=== PATIENT | female | born 1975 | race Caucasian/White ===

== ENCOUNTER 2017-07-01 10:11 | Emergency (ER) | payer OTHER ==
[2017-07-01] MEDS ORDERED: NS 1,000 ML IV ONE (10:18)
[2017-07-01] MEDS ORDERED: KETOROLAC 15 MG/1 ML SDV IVP ONE (10:31)
[2017-07-01 10:53] LABS: PLATELET COUNT 251 10^3/uL (150-400)
--- NOTE | 2017-07-01 12:14 | EDPHY ---
H & P Stated Complaint: R abd pain x 3 months on and off sharp and dull Time Seen by Provider: 07/01/17 10:17 HPI/ROS: This patient describes right lower quadrant abdominal pain that was initially intermittent starting 3 months ago, gradual in onset. Over the past 2 weeks the pain has become constant. Over the past 3 days the pain has steadily increased in intensity, and is now 7/10 in intensity at baseline achy in nature worse with some movement. She reports partial improvement from ibuprofen and notes no other exacerbating factors. She has not taken any analgesics for pain today. He reports that the pain is somewhat reminiscent of an ovarian cyst she had the past. She denies any other associated symptoms. She drove herself here by private vehicle for further evaluation. ROS: Constitutional: No fevers or chills. No significant fatigue. HEENT: No URI symptoms Pulmonary: No shortness of breath or other complaints cardiovascular: No lightheadedness GI: She reports normal bowel movements 1-2 day the slightly harder than usual lately. She describes lower belly or pelvic bloating that mild. Normal appetite. No nausea vomiting. : Last menstrual period was normal timing and duration 1 week ago. No dysuria, no frequency urgency. Integumentary: No rash or pallor. No diaphoresis. Endocrine: No complaints Neuro: No numbness tingling or complaints. Complete review of symptoms otherwise negative. Source: Patient Exam Limitations: No limitations - Personal History LMP (Females 10-55): 8-14 Days Ago Current Tetanus/Diphtheria Vaccine: Yes - Medical/Surgical History PMH: Not on control. had a vasectomy Hx Asthma: No Hx Chronic Respiratory Disease: No Hx Diabetes: No Hx Cardiac Disease: No Hx Renal Disease: No Hx Cirrhosis: No Hx Alcoholism: No Hx HIV/AIDS: No Hx Splenectomy or Spleen Trauma: No Other PMH: Ovarian Cysts - Family History Significant Family History: No pertinent family hx - Social History Smoking Status: Former smoker Alcohol Use: Occasionally Drug Use: None - Physical Exam Exam: Vital signs are normal with exception of mild hypertension 146/95 General Appearance: Pleasant fit-appearing 41-year-old female Alert, no distress. Eyes: Pupils equal and round no pallor or injection. ENT, Mouth: Mucous membranes moist. Respiratory: There are no retractions, lungs are clear to auscultation. Cardiovascular: Regular rate and rhythm. Gastrointestinal: Normoactive, soft, mild right lower quadrant tenderness. Positive psoas sign. Negative obturator sign. Negative Rovsing's. No rebound tenderness. Neurological: GCS 15 Skin: Warm and dry, no rashes. Musculoskeletal: Neck is supple nontender. Extremities are symmetrical, full range of motion. Psychiatric: Mood and affect normal DIFFERENTIAL DIAGNOSIS: After history and physical exam differential diagnosis was considered for ovarian cyst, uterine fibroid or other lesions, appendicitis , this ureteral stone, ectopic Constitutional: Initial Vital Signs Temperature (C) 37.2 C 07/01/17 10:15 Heart Rate 88 07/01/17 10:15 Respiratory Rate 18 07/01/17 10:15 Blood Pressure 146/95 H 07/01/17 10:15 O2 Sat (%) 97 07/01/17 10:15 O2 Delivery Mode Room Air Allergies/Adverse Reactions: Sulfa (Sulfonamide Antibiotics) Allergy (Verified 07/01/17 10:19) Hives Home Medications: Medication Instructions Recorded traMADol [Ultram 50 mg (*)] 50 - 100 mg PO Q4 PRN #20 tab 07/01/17 Medical Decision Making - Diagnostics Imaging Results: Imaging Impressions Pelvic/Renal Ultrasound 07/01/17 10:31 Impression: 1. Subtle heterogeneous echotexture along the posterior aspect of the uterine body that could represent a fibroid. 2. Normal-appearing ovaries. Imaging: Discussed imaging studies w/ will call clerk Radiologist ED Course/Re-evaluation: Studies: CBC is normal, basic metabolic panel normal, hCG negative, urinalysis reveals leukocytes, bacteria and nitrates consistent with mild UTI Toradol IV with partial improvement of the patient's pain I spoke with Leslie Quintana, on-call ornamental metal worker physician regarding this patient's uterine fibroid. Dr. Quintana is happy to follow up with patient in her office. Discussion: Patient with a large uterine fibroid causing her pain along with mild cystitis. I counseled her regarding these findings. Will plan to control her pain with NSAIDs, Tylenol and tramadol. Macrobid for cystitis. She will follow up with Dr. Quintana within the next week. She understands need to return emergency department should she develop any significant worsening of her symptoms despite treatment plan. - Data Points Laboratory Results: Laboratory Results 07/01/17 10:45 07/01/17 10:45 07/01/17 07/01/17 07/01/17 12:15 10:45 10:45 WBC RBC Hgb Hct MCV MCH MCHC RDW Plt Count MPV Neut % (Auto) Lymph % (Auto) [place] % (Auto) Eos % (Auto) Baso % (Auto) Nucleat RBC Rel Count Absolute Neuts (auto) Absolute Lymphs (auto) Absolute Monos (auto) Absolute Eos (auto) Absolute Basos (auto) Absolute Nucleated RBC Immature Gran % Immature Gran # Sodium 140 mEq/L mEq/L (135-145) Potassium 3.8 mEq/L mEq/L (3.3-5.0) Chloride 101 mEq/L mEq/L (97-110) Carbon Dioxide 28 mEq/l mEq/l (22-31) Anion Gap 11 mEq/L mEq/L (8-16) BUN 15 mg/dL mg/dL (7-23) Creatinine 0.5 mg/dL L mg/dL (0.6-1.0) Estimated GFR > 60 Glucose 89 mg/dL mg/dL (70-100) Calcium 9.6 mg/dL mg/dL (8.5-10.4) Beta HCG, Qual NEGATIVE Urine Color YELLOW Urine Appearance HAZY Urine pH 6.0 (5.0-7.5) Ur Specific [place] 1.020 (1.002-1.030) Urine Protein NEGATIVE (NEGATIVE) Urine Ketones NEGATIVE (NEGATIVE) Urine Blood 2+ H (NEGATIVE) Urine Nitrate POSITIVE H (NEGATIVE) Urine Bilirubin NEGATIVE (NEGATIVE) Urine Urobilinogen 0.2 EU EU (0.2-1.0) Ur Leukocyte Esterase NEGATIVE (NEGATIVE) Urine RBC 10-15 /hpf H /hpf (0-3) Urine WBC 5-10 /hpf H /hpf (0-3) Ur Epithelial Cells 2+ /lpf H /lpf (NONE-1+) Urine Bacteria 3+ /hpf H /hpf (NONE SEEN) Urine Glucose NEGATIVE (NEGATIVE) 07/01/17 10:45 WBC 7.34 10^3/uL 10^3/uL (3.80-9.50) RBC 3.98 10^6/uL L 10^6/uL (4.18-5.33) Hgb 13.6 g/dL g/dL (12.6-16.3) Hct 39.6 % % (38.0-47.0) MCV 99.5 fL fL (81.5-99.8) MCH 34.2 pg H pg (27.9-34.1) MCHC 34.3 g/dL g/dL (32.4-36.7) RDW 12.0 % % (11.5-15.2) Plt Count 251 10^3/uL 10^3/uL (150-400) MPV 8.4 fL L fL (8.7-11.7) Neut % (Auto) 68.6 % % (39.3-74.2) Lymph % (Auto) 22.1 % % (15.0-45.0) [place] % (Auto) 7.9 % % (4.5-13.0) Eos % (Auto) 0.7 % % (0.6-7.6) Baso % (Auto) 0.4 % % (0.3-1.7) Nucleat RBC Rel Count 0.0 % % (0.0-0.2) Absolute Neuts (auto) 5.04 10^3/uL 10^3/uL (1.70-6.50) Absolute Lymphs (auto) 1.62 10^3/uL 10^3/uL (1.00-3.00) Absolute Monos (auto) 0.58 10^3/uL 10^3/uL (0.30-0.80) Absolute Eos (auto) 0.05 10^3/uL 10^3/uL (0.03-0.40) Absolute Basos (auto) 0.03 10^3/uL 10^3/uL (0.02-0.10) Absolute Nucleated RBC 0.00 10^3/uL 10^3/uL (0-0.01) Immature Gran % 0.3 % % (0.0-1.1) Immature Gran # 0.02 10^3/uL 10^3/uL (0.00-0.10) Sodium Potassium Chloride Carbon Dioxide Anion Gap BUN Creatinine Estimated GFR Glucose Calcium Beta HCG, Qual Urine Color Urine Appearance Urine pH Ur Specific [place] Urine Protein Urine Ketones Urine Blood Urine Nitrate Urine Bilirubin Urine Urobilinogen Ur Leukocyte Esterase Urine RBC Urine WBC Ur Epithelial Cells Urine Bacteria Urine Glucose Medications Given: Discontinued Medications Sodium Chloride (Ns) 1,000 mls @ 0 mls/hr IV EDNOW ONE; Wide Open PRN Reason: Protocol Stop: 07/01/17 10:19 Last Admin: 07/01/17 10:40 Dose: 1,000 mls Ketorolac Tromethamine (Toradol) 15 mg IVP EDNOW ONE Stop: 07/01/17 10:32 Last Admin: 07/01/17 11:35 Dose: 15 mg Departure - Departure Disposition: Home, Routine, Self-Care Clinical Impression: Cystitis Uterine fibroid Qualifiers: Uterine leiomyoma location: unspecified location Qualified Code(s): D25.9 - Leiomyoma of uterus, unspecified Condition: Good Instructions: Tramadol (By mouth), Pelvic Pain in Women (ED) Additional Instructions: Diagnosis: Uterine fibroid 2. cystitis Plan: Continue [id number] mg per 6 hr as needed for pain control. Tylenol in addition 650-1000 mg per 4 hr as needed. Do not exceed 3000 mg in 24 hr Tramadol in addition if needed for pain. No driving, alcohol or come tramadol. Macrobid antibiotic for bladder infection Call Dr. Ortiz to arrange for follow-up appointment for sometime within the next week. Return emergency department for any significant worsening despite the treatment plan. Referrals: NONE *PRIMARY CARE P,. [Primary Care Provider] - As per Instructions Leslie Quintana MD [Medical Doctor] - As per Instructions Prescriptions: traMADol [Ultram 50 mg (*)] 50 - 100 mg PO Q4 PRN #20 tab PRN Reason: breakthrough pain
[2017-07-01 12:42] VITALS: BP 150/101
== END 2017-07-01 12:35 | disposition home or self-care (01) ==
LOC: CED 10:11
DX: N30.90 Cystitis, unspecified without hematuria (principal); D25.9 Leiomyoma of uterus, unspecified; B96.89 Other specified bacterial agents as the cause of diseases classified elsewhere; E86.9 Volume depletion, unspecified; Z87.891 Personal history of nicotine dependence
CPT/HCPCS: 76856-PO; 80048-PO; 81015-PO; 84703-PO; 96374; J1885